=== PATIENT | male | born 1960 | race Caucasian/White ===

== ENCOUNTER 2018-08-29 13:41 | Emergency (ER) | payer BC ==
[2018-08-29 13:45] VITALS: RESP 16
[2018-08-29] MEDS ORDERED: Morphine 4 MG/ML VIAL ONE (14:43)
--- NOTE | 2018-08-29 14:45 | RAD ---
Date of service: 08/29/2018 HISTORY: routine COMPARISON: No prior. TECHNIQUE: Chest PA and lateral FINDINGS: LUNGS: No active pulmonary disease. PLEURA: No significant pleural effusion identified. No pneumothorax apparent. CARDIOVASCULAR: No aortic atherosclerotic calcification present. Normal cardiac size. No pulmonary vascular congestion. OSSEOUS STRUCTURES: No significant abnormalities. VISUALIZED UPPER ABDOMEN: Normal. OTHER FINDINGS: None. IMPRESSION: No active disease.
--- NOTE | 2018-08-29 14:53 | ED PDOC ---
HPI: General Adult Time Seen by Provider: 08/29/18 14:09 Chief Complaint (Nursing): Back Pain Chief Complaint (Provider): back pain History Per: Patient (58 y/o male h/o Spinal stenosis/Sjorgen's syndrome here with complaint of lower back pain aggravated by coughing recently. No fevers/chills. Took naproxen 500mg today without relief.) Past Medical History Reviewed: Historical Data, Nursing Documentation, Vital Signs Vital Signs: Last Vital Signs Temp 97.8 F 08/29/18 13:43 Pulse 84 08/29/18 13:43 Resp 16 08/29/18 13:43 BP 136/91 H 08/29/18 13:43 Pulse Ox 97 08/29/18 13:43 - Family History Family History: States: No Known Family Hx - Home Medications Home Medications: Ambulatory Orders Medication Instructions Recorded Naproxen 375 mg PO Q8 PRN #21 tablet 08/29/18 diaZEpam [Valium] 5 mg PO Q8 PRN #6 tab 08/29/18 - Allergies Allergies/Adverse Reactions: Allergies Allergy/AdvReac Type Severity Reaction Status Date / Time No Known Allergies Allergy Verified 08/29/18 13:42 Review of Systems ROS Statement: Except As Marked, All Systems Reviewed And Found Negative Respiratory: Positive for: Cough Musculoskeletal: Positive for: Back Pain Physical Exam - Reviewed Nursing Documentation Reviewed: Yes Vital Signs Reviewed: Yes - Physical Exam Appears: Positive for: Well, Non-toxic, No Acute Distress Head Exam: Positive for: ATRAUMATIC, NORMAL INSPECTION, NORMOCEPHALIC Skin: Positive for: Normal Color, Warm, DRY Eye Exam: Positive for: EOMI, Normal appearance, PERRL ENT: Positive for: Normal ENT Inspection Neck: Positive for: Normal, Painless ROM Cardiovascular/Chest: Positive for: Regular Rate, Rhythm Respiratory: Positive for: CNT, Normal Breath Sounds Gastrointestinal/Abdominal: Positive for: Normal Exam, Soft Back: Positive for: Normal Inspection, Other (paralumbar tenderness.) Extremity: Positive for: Normal ROM Neurological/Psych: Positive for: Awake, Alert, Normal Tone - ECG O2 Sat by Pulse Oximetry: 97 - Progress ED Course And Treament: Morphine 4 mg IM x 1 dose cxr: nad Influenza a/b neg Disposition - Clinical Impression Clinical Impression: Back pain - Patient ED Disposition Is Patient to be Admitted: No - Disposition Disposition: Routine/Home Disposition Time: 15:27 Condition: FAIR Prescriptions: diaZEpam [Valium] 5 mg PO Q8 PRN #6 tab PRN Reason: Muscle Spasm Naproxen 375 mg PO Q8 PRN #21 tablet PRN Reason: Pain, Moderate (4-7) Instructions: Low Back Pain in Adults Forms: [facility] ED School/Work Excuse
[2018-08-29] MEDS ORDERED: Oxycodone/Acetaminophen 5/325 mg Tab PO STA (16:20)
[2018-08-29] MEDS ORDERED: Oxycodone/Acetaminophen 5/325 mg Tab ONE (16:27)
[2018-08-29 17:27] VITALS: BP 138/58; PULSE 72; TEMP 97.9; O2SAT 100
== END 2018-08-29 17:20 | disposition home or self-care (01) ==
LOC: H.ER 13:41
DX: M54.9 Dorsalgia, unspecified (principal)
CPT/HCPCS: 71046; 87804; 96372; 99283; J2270